=== PATIENT | male | born 1980 | race Caucasian/White ===

== ENCOUNTER 2019-02-19 20:16 | Emergency (ER) | payer BC, SELFPAY ==
[2019-02-19 20:16] VITALS: BP 146/93; PULSE 86; RESP 17; TEMP 36.3; O2SAT 98; BMI 34.5
--- NOTE | 2019-02-19 20:38 | EKG12_ITS ---
Test Reason : DIZZY Blood Pressure : / mmHG Vent. Rate : 073 BPM Atrial Rate : 073 BPM P-R Int : 172 ms QRS Dur : 100 ms QT Int : 400 ms P-R-T Axes : 046 031 009 degrees QTc Int : 440 ms Normal sinus rhythm Normal ECG Confirmed by SHANICE HOUSTON, THAD ([id number]), editor in chief newspaper DARIUSZ ORTIZ ([id number]) on 02/23/2019 11:32:25 AM Referred By: DARRYL Confirmed By:THAD PRASAD MD
--- NOTE | 2019-02-19 20:38 | CT_ITS ---
STUDY: CT BRAIN WITHOUT CONTRAST REASON FOR EXAM: Male, 38 years old. Sudden onset dizziness RADIATION DOSAGE (If Supplied By Facility): CTDIvol = ( 44.99 ) mGy, DLP = ( 829.85 ) mGycm TECHNIQUE: Transaxial CT imaging of the brain was performed without administration of intravenous contrast material. Individualized dose optimization techniques were used for this CT. COMPARISON: No relevant priors. FINDINGS: Normal soft tissue structures. Normal calvarium. Normal size ventricles and extra-axial spaces for the patient's age. Normal white matter tracts of the cerebral hemispheres. Normal basal ganglia and thalami. Normal brainstem. Normal cerebellum. There is no intracranial hemorrhage. There are no findings of an acute ischemic infarction. Normal visualized paranasal sinuses. CT/Brain/Head without Contrast IMPRESSION: Normal unenhanced CT scan of the brain. Electronically Signed: Malachi Bentley MD at 21:46 EDT Tel , Service support ,
--- NOTE | 2019-02-19 20:40 | ED.RN ---
NO OLD EKGS IN MUSE
--- NOTE | 2019-02-19 21:26 | ED.VISSUMM ---
- ER Visit Summary Date of Service: 02/19/19 Chief Complaint: Dizziness History of Present Illness: The patient is a 38 M presents to the emergency department dizziness. The patient states that he was helping his parents move some furniture. He states he was doing twisting. States when he stood up, he was feeling dizzy. He states that it felt more like sensation of motion but he also felt lightheaded. He states his symptoms are worse if he moves quickly. Shortly thereafter, he was trying to take his blood pressure and was reading as high at home. He has no history of hypertension. His dad does have history of coronary vascular disease, and told him that you need to get this checked out. He states that he was having some numbness diffusely throughout his body. He denies any neck pain. He denies any change in speech. He denies any change in vision. Patient is otherwise healthy. Physical Examination: Vital signs reviewed General: Well-nourished, well-developed Head: Normocephalic, atraumatic Eyes: Pupils equal and reactive, extraocular muscles intact Neck, supple, no lymphadenopathy Heart: Regular rate and rhythm Respiratory: No distress, clear bilaterally Abdomen: Soft, nontender, nondistended, no peritoneal signs Back: Nontender Extremities: Nontender, no edema, no cords Skin: Normal color no rash Neuro: Alert and oriented, no focal or lateralizing deficits Test Results: [] Emergency Department Course and Treatment: The patient symptoms do seem vertiginous. He does have dizziness with rapid head movements. He has no other cerebellar symptoms. He is a normal steady gait. He has no difficulties with rapid alternating movements. He has no ataxia. He has no trauma, history of connective tissue disease, or any neck pain. I do not suspect dissection as the cause of his symptoms. IV was established. EKG was obtained which is sinus rhythm without acute ischemia. Screening labs are unremarkable. With fluids he did have improvement of his symptoms. Head CT was unremarkable. Patient was given meclizine. I do feel that this is a positional vertigo. I do feel that he is safe for outpatient therapy. He was counseled on concerning symptoms and reasons to return. He will be discharged home. Treatment Plan: [] Disposition: Discharge Impression: 1. Vertigo This note was generated with [employer] software. It may contain incorrect words, spelling, and punctuation that were not noted in review of the chart prior to signing ED Disposition - Plan for ED Patient: Instructions: ED Vertigo Unspecified Prescriptions: Meclizine HCl [Antivert] 25 mg PO 4X/DAY PRN PRN #20 tab PRN Reason: Dizziness Referrals: Carlee Salgado MD [Primary Care Provider] -
[2019-02-19 21:35] LABS: Absolute Lymphocyte Count 3.74 X10^3/ul (0.83-4.51); Absolute Neutrophil Count 5.6 X10^3/uL (2.0-7.7); Basophil# 0.04 X10^3/uL; Basophil% 0.4 % (0-1); Eosinophil# 0.32 X10^3/uL; Hematocrit 44.9 % (40-54); Hemoglobin 15.4 g/dl (13.0-16.5); Lymphocyte # 3.74 X10^3/ul (4.0); Lymphocyte % 35.3 % (19-41); Mean Corp Hgb Conc 34.3 g/gl (32-36); Mean Corpuscular Volume 90.5 fL (80-94); Monocyte# 0.84 X10^3/uL; Monocyte% 7.9 % (0-10); Platelet Count 288 K/mm3 (150-450); RBC Distribution Width CV 12.8 % (11.6-14.6); RBC Distribution Width SD 41.9 fl (35.1-43.9); Red Blood Count 4.96 M/mm3 (4.6-6.2); White Blood Count 10.6 K/mm3 (4.4-11.0)
[2019-02-19 21:39] LABS: POSITIVE COUNT NO; POSITIVE DIFFERENTIAL NO; POSITIVE MORPHOLOGY NO
[2019-02-19 22:10] LABS: ALB/GLOB Ratio 1.1 RATIO (0.9-2.4); AST(SGOT) 42 U/L (15-37); Alanine Aminotransfer ALT/SGPT 42 U/L (16-61); Albumin, Serum 3.8 g/dL (3.2-5.0); Alkaline Phosphatase 88 U/L (45-117); Anion Gap 8 (5-15); BUN 12 mg/dL (7-18); BUN/Creat Ratio 11.8 RATIO (10-20); Calcium,Total 8.1 mg/dL (8.5-10.1); Chloride 103 mmol/L (98-107); Creatinine, Serum 1.02 mg/dL (0.70-1.30); EST Glomerular Filtration Rate 87 mL/min (>60); Est Glom Filt Rate - Afr Amer 106 mL/min (>60); Estimated Creatinine Clearance 109.89 ml/min; Globulin 3.6 g/dL (2.2-4.2); Glucose 113 mg/dL (74-106); Protein, Total 7.4 g/dL (6.4-8.2); Sodium Level 135 mmol/L (136-145)
[2019-02-19] MEDS: Meclizine HCl 25 MG Tablet PO (22:26)
[2019-02-19 22:30] VITALS: BP 137/89; PULSE 80; RESP 18; O2SAT 97
== END 2019-02-19 22:31 | disposition home or self-care (01) ==
LOC: ED 20:57
PROVIDERS: Emergency Provider Emergency Medicine; Family Provider Internal Medicine; PCP Internal Medicine
DX: R42 Dizziness and giddiness (principal)
CPT/HCPCS: 70450; 80053; 85025; 93005; 96360; 99285; J7040

== ENCOUNTER 2025-03-08 20:06 | Emergency (ER) | payer BC, SELFPAY ==
[2025-03-08 20:07] VITALS: BP 148/82; PULSE 99; RESP 17; TEMP 36.4; O2SAT 98
[2025-03-08 20:08] VITALS: BMI 32.3
--- NOTE | 2025-03-08 21:10 | RAD_ITS ---
PROCEDURE: ANKLE MIN 3 VIEWS 03/08/2025 REASON FOR EXAM: FALL TECHNIQUE: 3 views of the left ankle COMPARISON: None FINDINGS: Bones: Comminuted fracture of the lateral malleolus. Joints: Normal alignment. Mortise appears intact. No effusion. Soft tissues: Soft tissue swelling of the lateral malleolus. Other: RAD/Ankle min 3 Views IMPRESSION: Comminuted fracture of the lateral malleolus with associated soft tissue swelli ng. Reading Location: [facility]
[2025-03-08] MEDS: Ibuprofen 600 MG Tablet PO (21:45)
[2025-03-08 21:46] VITALS: BP 136/79; PULSE 74; RESP 17; TEMP 36.8; O2SAT 99
--- NOTE | 2025-03-08 22:00 | ED.VIS.LOWEX ---
HPI History of Present Illness Chief Complaint: Lower Extremity Injury Informant: patient and family Narrative Narrative: 44-year-old male presenting to the emergency room with chief complaint of ankle injury. Patient was [place] the park when he sustained an inversion injury to the left ankle. He notes pain and swelling laterally. He denies any other injuries. Patient denies any proximal leg pain. PFSH PFSH Home Medications ?Medication ?Instructions ?Recorded ?Last Taken ?Type meclizine 25 mg tablet 25 mg PO 4X/DAY PRN PRN Dizziness 02/19/19 Unknown Rx #20 tabs fenofibrate nanocrystallized 145 145 mg PO DAILY 03/08/25 Unknown History mg tablet oxycodone-acetaminophen 5 mg-325 1 tab PO Q6H PRN pain 3 days #12 03/08/25 Unknown Rx mg tablet (Percocet) tabs sertraline 100 mg tablet 100 mg PO DAILY 03/08/25 Unknown History Allergy/AdvReac Type Severity Reaction Status Date / Time No Known Allergies Allergy Verified 03/08/25 20:06 Social History Smoking Status: Never smoker ROS ROS ED Constitutional Constitutional ED: Denies chills, fever(s) or weight loss Eyes Eyes: Denies change in vision or diplopia ENT ENT ED: Denies ear pain, rhinorrhea or sore throat Cardiovascular Cardiovascular: Denies chest pain, orthopnea, palpitations or racing heartbeat Respiratory/Chest Respiratory/Chest: Denies cough, dyspnea or orthopnea Gastrointestinal Gastrointestinal: Denies abdominal pain, diarrhea, nausea or vomiting Genitourinary Genitourinary ED: Denies dysuria, hematuria or urinary frequency Musculoskeletal Musculoskeletal: Reports other Details: See history of present illness ; Denies arthralgias, back pain, myalgias or neck pain Integumentary Denies abscess or rash Neurologic Neurologic: Denies headache(s) or weakness Psychiatric Psychiatric: Denies anxiety, depression, suicidal ideation or suicidal thoughts Endocrine Endocrinology: Denies polydipsia, polyphagia or polyuria Allergic/Immunologic Allergic/Immunologic ED: Denies mouth swelling, tongue swelling or urticaria EXAM Physical Exam Const Vital Signs: 03/08/25 20:07 03/08/25 21:46 Temperature 97.5 F L 98.2 F Temperature Source Temporal Pulse Rate 99 74 Respiratory Rate 17 17 Blood Pressure 148/82 H 136/79 H Blood Pressure Mean 104 98 Pulse Ox 98 99 Oxygen Delivery Method Room Air Positive well nourished and well developed General Appearance ED: well developed HEENT Reports normocephalic, head/scalp atraumatic and moist mucous membranes Eyes PERRL and EOMs intact bilaterally Neck no lymphadenopathy, supple and no JVD Resp normal respiratory effort and clear to auscultation bilaterally Cardio regular rate, regular rhythm and no murmurs GI normal to inspection, nondistended, normoactive bowel sounds and non-tender Palpation: soft Back/Spine no CVA tenderness and normal ROM Extremity Extremity Narrative: Patient has swelling and tenderness over the lateral malleolus. There is no fifth metatarsal pain. There is no fibular head pain. There is no tibial shaft pain. The Achilles palpates intact and functionally appears intact. Neurovascular the patient is intact distal. General Extremety ED: Negative for edema General Extremity: Negative for edema Neuro oriented x3 and CN's II-XII intact bilaterally Sensorium / Orientation: alert Motor Exam: strength 5/5 throughout Psych mental status grossly normal Mood & Affect: Negative for depressed or tearful Skin no rashes or lesions noted and no wounds MDM MDM MDM Narrative Medical decision making narrative: Differential diagnosis includes but not limited to ankle sprain strain fracture neurovascular injury tendon injury My independent interpretation's plain films of the left ankle is a distal fibular fracture with soft tissue swelling. The mortise otherwise appears intact. He does not have any medial or posterior malleoli are tenderness or swelling. Patient be placed in a boot orthosis. Crutches if needed. He was given a dose of Motrin here in the department at his request. We spoke whether or not he would like to have any pain medication at home and I will write for a few to have over the next couple days. He will follow-up with orthopedics. He has seen [facility] in the past. History & Record Review Discussion w/independent historian: Patient Radiography Diagnostic Testing: Clinical Impression(s) from Imaging Studies Ankle X-Ray 03/08/25 21:10 IMPRESSION: Comminuted fracture of the lateral malleolus with associated soft tissue swelling. Reading Location: [facility] Discharge Plan Triage Chief Complaint: Lower Extremity Injury ED Provider: Kamaljit Love Dx/Rx/DC Orders Clinical Impression: Fracture of distal end of fibula, Ankle sprain Instructions: ED Ankle Fracture, Distal Fibula Prescriptions: New oxycodone-acetaminophen [Percocet] 5-325 mg tablet 1 tab PO Q6H PRN (Reason: pain) 3 Days Qty: 12 0RF No Action meclizine 25 MG tablet 25 mg PO 4X/DAY PRN PRN (Reason: Dizziness) Qty: 20 0RF sertraline 100 mg tablet 100 mg PO DAILY fenofibrate nanocrystallized 145 mg tablet 145 mg PO DAILY Primary Care Provider: Casey Harris Referrals: Casey Harris MD [Primary Care Provider] - Marquise Momin MD [Med Staff - Active Staff] - As soon as possible Print Language: Azeri Disposition Disposition: Home, Self Care Discharge Date/Time: 03/08/25 21:46
== END 2025-03-08 21:46 | disposition home or self-care (01) ==
PROVIDERS: Emergency Provider Emergency Medicine; PCP Family Medicine; Visit Provider Emergency Medicine
DX: S82.65XA Nondisplaced fracture of lateral malleolus of left fibula, initial encounter for closed fracture (principal); X58.XXXA Exposure to other specified factors, initial encounter; Y92.830 Public park as the place of occurrence of the external cause; S93.402A Sprain of unspecified ligament of left ankle, initial encounter
CPT/HCPCS: 73610; 99283